=== PATIENT | female | born 2000 | race Caucasian/White ===

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

== ENCOUNTER 2020-01-18 17:51 | Emergency (ER) | payer SELFPAY ==
[~2020-01-18] VITALS: Ht 160 cm; Wt 85.9 kg
[2020-01-18 18:08] VITALS: TEMP 98.2
[2020-01-18] MEDS ORDERED: CELEXA 20MG20 MG/TAB PO (18:13)
[2020-01-18 19:35] VITALS: BP 112/74; PULSE 55
== END 2020-01-18 19:35 | disposition home or self-care (01) ==
LOC: COL.ER 17:51
PROVIDERS: Physician Assistant
DX: N92.6 Irregular menstruation, unspecified (principal); F32.9 Major depressive disorder, single episode, unspecified; F41.9 Anxiety disorder, unspecified; G35 Multiple sclerosis; Z90.49 Acquired absence of other specified parts of digestive tract; Z87.891 Personal history of nicotine dependence; Z88.0 Allergy status to penicillin

== ENCOUNTER 2020-03-12 21:05 | Emergency (ER) | payer SELFPAY ==
[~2020-03-12] VITALS: Ht 157.5 cm; Wt 84.5 kg
[~2020-03-12 21:05] MED LIST changes: +CELEXA 20MG20 MG/TAB PO
[2020-03-12 21:13] VITALS: BP 100/62; PULSE 64; TEMP 97.9
[2020-03-12 21:53] LABS: MUCOUS Present /lpf; PH 5 (5-8); SQUAMOUS EPITHELIAL 0-2 /hpf; URINE APPEARANCE Clear; URINE BACTERIA Rare /hpf; URINE BILIRUBIN Negative (NEGATIVE); URINE BLOOD 2+ (NEGATIVE); URINE COLOR Yellow; URINE GLUCOSE Negative (NEGATIVE); URINE KETONE Negative (NEGATIVE); URINE LEUKOCYTE ESTERASE Negative (NEGATIVE); URINE NITRATE Negative (NEGATIVE); URINE PROTEIN(semi-quant) Negative (NEGATIVE); URINE RBC 0-2 /hpf; URINE UROBILINOGEN Negative (NEGATIVE); URINE WBC 0-2 /hpf
[2020-03-12 22:42] LABS: COLLECTION METHOD CLEAN CATCH
[2020-03-12] MEDS ORDERED: PREDNISONE20 MG PO (23:54)
== END 2020-03-13 00:10 | disposition home or self-care (01) ==
LOC: COL.ER 21:05
PROVIDERS: Emergency Medicine
DX: G35 Multiple sclerosis (principal); R27.0 Ataxia, unspecified; F32.9 Major depressive disorder, single episode, unspecified; F41.9 Anxiety disorder, unspecified; F17.210 Nicotine dependence, cigarettes, uncomplicated; Z20.828 Contact with and (suspected) exposure to other viral communicable diseases; Z88.0 Allergy status to penicillin
CPT/HCPCS: J2930; J7060

== ENCOUNTER 2020-07-09 10:07 | Emergency (ER) | payer SELFPAY ==
[~2020-07-09] VITALS: Ht 157.5 cm; Wt 95.5 kg
[~2020-07-09 10:07] MED LIST changes: +CEPHALEXIN500 M1 PO; +PREDNISONE20 MG PO
[2020-07-09 10:29] VITALS: TEMP 98.2
[2020-07-09 10:37] LABS: COLLECTION METHOD CLEAN CATCH
[2020-07-09 10:43] LABS: MUCOUS Present /lpf; PH 7 (5-8); SQUAMOUS EPITHELIAL 0-2 /hpf; URINE APPEARANCE Clear; URINE BACTERIA None Seen /hpf; URINE BILIRUBIN Negative (NEGATIVE); URINE BLOOD Negative (NEGATIVE); URINE COLOR Yellow; URINE GLUCOSE Negative (NEGATIVE); URINE KETONE Negative (NEGATIVE); URINE LEUKOCYTE ESTERASE Negative (NEGATIVE); URINE NITRATE Negative (NEGATIVE); URINE PROTEIN(semi-quant) Negative (NEGATIVE); URINE RBC 0-2 /hpf
[2020-07-09] MEDS ORDERED: PREDNISONE10 MG PO (11:09)
[2020-07-09 11:49] VITALS: BP 135/81; PULSE 72
== END 2020-07-09 11:50 | disposition home or self-care (01) ==
LOC: COL.ER 10:07
PROVIDERS: Emergency Medicine
DX: G35 Multiple sclerosis (principal); F17.290 Nicotine dependence, other tobacco product, uncomplicated; Z88.0 Allergy status to penicillin
CPT/HCPCS: J2930

== ENCOUNTER 2020-07-18 17:00 | Outpatient (RCR) | payer SELFPAY ==
[2020-07-15 09:06] VITALS: BP 109/83; PULSE 62; TEMP 98.4
[~2020-07-18] VITALS: Ht 157.5 cm; Wt 96.0 kg
[~2020-07-18 17:00] MED LIST changes: +PREDNISONE10 MG PO
--- NOTE | 2020-07-19 14:43 | NUR ---
I spoke with pt at 1130 today inquiring about her well-being as she has not come for her infusion of solumedrol for past 3 days. Pt reports remains ambulatory, but cannot drive due to increasing numbness. Pt reports has spoken with Dr. Lawrence's office and has been referred to another neurologist. Pt reports also that she needs to establish primary care locally. Pt denied wanting the numbers of our in-house case supervisor to aid in her efforts. I spoke with pt again at 1440 and she reports she had been in touch with new neurologist, and that they were working on a plan. Pt reports she will not be coming [facility] from current order. Plan to close this account.
== END 2020-07-19 14:49 | disposition home or self-care (01) ==
LOC: EUO 17:00
DX: Z79.899 Other long term (current) drug therapy (principal)
CPT/HCPCS: J2930; J7050

== ENCOUNTER 2020-08-03 08:50 | Emergency (ER) | payer SELFPAY ==
[~2020-08-03] VITALS: Ht 160 cm; Wt 99.1 kg
[2020-08-03 08:57] VITALS: TEMP 98.1
[2020-08-03] MEDS ORDERED: NEXPLANON68 MG ID (09:10)
[2020-08-03] MEDS ORDERED: PROTONIX 40MG T40 MG PO (09:15)
[2020-08-03] MEDS ORDERED: PREDNISONE20 MG PO (09:16)
[2020-08-03 09:33] LABS: HEMATOCRIT 37.4 % (37.0-47.0); MEAN CELL VOLUME 90 fl (80.0-100.0); MEAN CORPUSCULAR HEMOGLOBIN 29 pg (27.0-31.0); MEAN CORPUSCULAR HGB CONC 32 g/dl (33.0-37.0); MEAN PLATELET VOLUME 9.4 fl (7.4-10.4); PLATELET COUNT 307 K/mm3 (130-400); RED BLOOD COUNT 4.14 M/mm3 (4.10-5.30); REDCELL DISTRIBUTION WIDTH-CV 13.8 % (11.5-14.5)
[2020-08-03 09:43] LABS: COLLECTION METHOD CLEAN CATCH
[2020-08-03 09:45] LABS: ALANINE AMINOTRANSFERASE 27 U/L (4-34); ALKALINE PHOSPHATASE 37 U/L (50-136); ANION GAP 3 mmol/L (7-16); AST,SGOT 14 U/L (15-37); BILIRUBIN,TOTAL 0.3 mg/dL (0.0-1.0); BLOOD UREA NITROGEN 24 mg/dL (7-17); CALCIUM 8.1 mg/dL (8.4-10.2); CARBON DIOXIDE 30 mmol/L (22-30); CHLORIDE 104 mmol/L (98-107); CREATININE, serum 0.58 (0.52-1.25); GLUCOSE 82 mg/dL (74-106); POTASSIUM 3.6 mmol/L (3.4-5.0); SODIUM 138 mmol/L (137-145); TOTAL PROTEIN 5.6 gm/dL (6.4-8.2)
[2020-08-03 09:49] LABS: C-REACTIVE PROTEIN < 0.5 mg/dL (0.0-0.9)
[2020-08-03 09:52] LABS: MUCOUS Present /lpf; PH 6 (5-8); URINE APPEARANCE Hazy; URINE BACTERIA None Seen /hpf; URINE BILIRUBIN Negative (NEGATIVE); URINE BLOOD Negative (NEGATIVE); URINE COLOR Yellow; URINE GLUCOSE Negative (NEGATIVE); URINE KETONE Negative (NEGATIVE); URINE LEUKOCYTE ESTERASE 1+ (NEGATIVE); URINE NITRATE Negative (NEGATIVE); URINE PROTEIN(semi-quant) Negative (NEGATIVE); URINE RBC 0-2 /hpf
[2020-08-03 10:19] LABS: BAND 1 % (0-10); LYMPHOCYTE 16 % (20.0-51.0); METAMYELOCYTE 1 % (0-0); NEUTROPHILS 78 % (42.0-75.2); PLATELET ESTIMATE NORMAL (NORMAL)
[2020-08-03 10:55] VITALS: BP 134/82; PULSE 51
== END 2020-08-03 10:55 | disposition home or self-care (01) ==
LOC: COL.ER 08:50
PROVIDERS: Family Medicine
DX: G35 Multiple sclerosis (principal); Z79.52 Long term (current) use of systemic steroids; F17.210 Nicotine dependence, cigarettes, uncomplicated; Z90.49 Acquired absence of other specified parts of digestive tract; Z88.0 Allergy status to penicillin; Z88.8 Allergy status to other drugs, medicaments and biological substances

== ENCOUNTER 2020-08-12 18:57 | Emergency (ER) | payer BC ==
[~2020-08-12] VITALS: Ht 157.5 cm; Wt 99.1 kg
[~2020-08-12 18:57] MED LIST changes: +NEXPLANON68 MG ID; +PROTONIX 40MG T40 MG PO
[2020-08-12 20:03] LABS: COLLECTION METHOD CLEAN CATCH
[2020-08-12 20:07] LABS: BASO # 0.1 (0.0-0.2); BASO % 0.3 % (0.0-2.0); GRAN # 21.2 (1.4-6.5); GRAN % 86.3 % (42.2-75.2); HEMOGLOBIN 14.8 g/dl (12.5-16.0); LYMPH # 1.7 (1.2-3.4); LYMPH % 6.8 % (20.0-51.0); MEAN CELL VOLUME 89 fl (80.0-100.0); MEAN CORPUSCULAR HEMOGLOBIN 29 pg (27.0-31.0); MEAN CORPUSCULAR HGB CONC 33 g/dl (33.0-37.0); MEAN PLATELET VOLUME 8.7 fl (7.4-10.4); MONO # 1.3 (0.1-0.6); MONO % 5.1 % (1.7-9.3); PLATELET COUNT 325 K/mm3 (130-400); RED BLOOD COUNT 5.06 M/mm3 (4.10-5.30); REDCELL DISTRIBUTION WIDTH-CV 14.4 % (11.5-14.5)
[2020-08-12 20:13] LABS: ALBUMIN 4.1 gm/dL (3.5-5.0); BILIRUBIN,TOTAL 1.2 mg/dL (0.0-1.0); CALCIUM 9.1 mg/dL (8.4-10.2); CREATININE, serum 0.58 (0.52-1.25); POTASSIUM 3.8 mmol/L (3.4-5.0); TOTAL PROTEIN 7.3 gm/dL (6.4-8.2)
[2020-08-12 20:14] LABS: PH 5 (5-8); URINE APPEARANCE Hazy; URINE BACTERIA None Seen /hpf; URINE BILIRUBIN Negative (NEGATIVE); URINE BLOOD 3+ (NEGATIVE); URINE COLOR Yellow; URINE GLUCOSE Negative (NEGATIVE); URINE KETONE Negative (NEGATIVE); URINE LEUKOCYTE ESTERASE 1+ (NEGATIVE); URINE NITRATE Negative (NEGATIVE); URINE PROTEIN(semi-quant) Negative (NEGATIVE); URINE RBC 20-50 /hpf
[2020-08-12 21:22] LABS: BAND 9 % (0-10); LYMPHOCYTE 11 % (20.0-51.0); MYELOCYTE 1 % (0-0); NEUTROPHILS 71 % (42.0-75.2); PLATELET ESTIMATE NORMAL (NORMAL)
[2020-08-12] MEDS ORDERED: TYLENOL 325MG325 MG PO (21:36)
[2020-08-12] MEDS ORDERED: ZOFRAN ODT4 MG PO (21:36)
[2020-08-12 22:40] VITALS: BP 136/86; PULSE 110; TEMP 98.1
== END 2020-08-12 22:39 | disposition home or self-care (01) ==
LOC: COL.ER 18:57
PROVIDERS: Emergency Medicine
DX: K52.9 Noninfective gastroenteritis and colitis, unspecified (principal); Z79.52 Long term (current) use of systemic steroids; D72.829 Elevated white blood cell count, unspecified; Z32.02 Encounter for pregnancy test, result negative; Z88.0 Allergy status to penicillin; Z88.8 Allergy status to other drugs, medicaments and biological substances
CPT/HCPCS: J2060; J2270; J2405; J3010; J7030; Q9967

== ENCOUNTER → 2020-09-12 | Outpatient (CLI) | payer BC ==
[~2020-09-12] MED LIST changes: +TYLENOL 325MG325 MG PO; +ZOFRAN ODT4 MG PO
== END ==
LOC: COL.RAD 10:25
DX: G37.9 Demyelinating disease of central nervous system, unspecified (principal)
CPT/HCPCS: A9585

== ENCOUNTER → 2020-09-25 | Outpatient (CLI) | payer BC ==
[2020-09-25 17:11] LABS: ALBUMIN 3.8 gm/dL (3.5-5.0); BILIRUBIN,TOTAL 1.2 mg/dL (0.0-1.0); CALCIUM 8.9 mg/dL (8.4-10.2); CREATININE, serum 0.57 (0.52-1.25); POTASSIUM 3.6 mmol/L (3.4-5.0); TOTAL PROTEIN 6.9 gm/dL (6.4-8.2)
[2020-09-25 17:54] LABS: HIV 1/2 Antibodies Non-Reactive; HIV-1p24 Antigen Non-Reactive
[2020-09-25 23:14] LABS: IMMUNOGLOBULIN A 66 mg/dL (65-421); IMMUNOGLOBULIN G 948 mg/dL (552-1631); IMMUNOGLOBULIN M, QUANTITATIVE 140 mg/dL (33-293)
[2020-09-25 23:29] LABS: HEPATITIS B CORE AB,TOTAL Negative (()); HEPATITIS B SURFACE ANTIBODY <2.0 (()); HEPATITIS B SURFACE ANTIGEN Negative (Negative); HEPATITIS C VIRUS ANTIBODY Negative (Negative)
[2020-09-26 16:16] LABS: TB GOLD INTERPRETATION Negative (Negative)
== END ==
LOC: COL.LAB 16:22
DX: Z76.89 Persons encountering health services in other specified circumstances (principal); G35 Multiple sclerosis

== ENCOUNTER 2020-11-08 22:38 | Emergency (ER) | payer BC ==
[~2020-11-08] VITALS: Ht 157.5 cm; Wt 102.3 kg
[2020-11-08 22:53] VITALS: TEMP 99.5
[2020-11-09 01:22] VITALS: BP 100/67; PULSE 71
== END 2020-11-09 00:15 | disposition home or self-care (01) ==
LOC: COL.ER 22:38
DX: J06.9 Acute upper respiratory infection, unspecified (principal); G35 Multiple sclerosis; Z20.822 Contact with and (suspected) exposure to COVID-19

== ENCOUNTER 2021-02-25 10:31 | Emergency (ER) | payer BC, MEDICAID ==
[~2021-02-25] VITALS: Ht 157.5 cm; Wt 105.9 kg
[2021-02-25 10:50] VITALS: TEMP 98
[2021-02-25 11:29] LABS: COLLECTION METHOD CLEAN CATCH
[2021-02-25 11:38] LABS: MUCOUS Present /lpf; PH 5 (5-8); URINE APPEARANCE Hazy; URINE BACTERIA Rare /hpf; URINE BILIRUBIN Negative (NEGATIVE); URINE BLOOD Negative (NEGATIVE); URINE COLOR Amber; URINE GLUCOSE Negative (NEGATIVE); URINE KETONE Negative (NEGATIVE); URINE LEUKOCYTE ESTERASE Trace (NEGATIVE); URINE NITRATE Negative (NEGATIVE); URINE PROTEIN(semi-quant) Negative (NEGATIVE); URINE RBC 0-2 /hpf; URINE UROBILINOGEN >=4.0 mg/dL (NEGATIVE)
[2021-02-25 13:42] VITALS: BP 125/70; PULSE 80
== END 2021-02-25 13:44 | disposition home or self-care (01) ==
LOC: COL.ER 10:31
PROVIDERS: Nurse Practitioner Primary Care
DX: O9A.211 Injury, poisoning and certain other consequences of external causes complicating pregnancy, first trimester (principal); S30.0XXA Contusion of lower back and pelvis, initial encounter; O99.511 Diseases of the respiratory system complicating pregnancy, first trimester; J06.9 Acute upper respiratory infection, unspecified; Z3A.11 11 weeks gestation of pregnancy; W01.198A Fall on same level from slipping, tripping and stumbling with subsequent striking against other object, initial encounter; Y92.524 Gas station as the place of occurrence of the external cause

== ENCOUNTER 2021-06-18 19:03 | Outpatient (CLI) | payer BC, MEDICAID ==
[~2021-06-18] VITALS: Ht 157.5 cm; Wt 106.8 kg
--- NOTE | 2021-06-18 19:12 | NUR ---
1913- 20 yo, , 27.4 wga: Presents to OB unit, ambulatory, accompanied by spouse, Lam. RN escorted to room. Instructions given and oriented to room. Pt c/o discharge/ LOF and cramping. Per pt report the cramping started this morning and she has noticed the discharge x 2 days. +FM, -CTX, -VB. 1917- EFM and Scissors applied. RN at bs adjusting EFM. Difficulty tracing FHTs r/t body habitus. 1924- SVE:0/0/-3 performed by MIKE Ying. Amniotrace negative. VSS. Afebrile. Rates pain 06/20. [id number]- RN remains at bs adjusting EFM. Difficulty tracing FHTs. Position change to left lateral. 2014- Educated pt on staying hydrated. H2O jug of water provided to pt and instructed to drink. 2020- Dr. Selby notified of pt's arrival and status. Per Dr. Selby have pt call office for f/u appt and orders rec'd to DC pt home w/ instructions. 2022- EFM and toco removed. DC instructions d/w pt and spouse. All questions answered. Pt verbalizes understanding and signs paperwork. 2039- Pt ambulates off unit, accompanied by spouse. DC home.
[2021-06-18 19:25] VITALS: BP 108/51; PULSE 70; TEMP 97.6
[2021-06-18] MEDS ORDERED: PRENATAL (19:47)
[2021-06-18] MEDS ORDERED: CELEXA40 MG PO (19:47)
[2021-06-18 19:49] VITALS: TEMP 97.6
== END 2021-06-18 20:40 | disposition home or self-care (01) ==
LOC: LDRO 19:03 → LDR 19:15 → LDRO 20:40
DX: O62.9 Abnormality of forces of labor, unspecified (principal); Z3A.00 Weeks of gestation of pregnancy not specified
CPT/HCPCS: OP

== ENCOUNTER 2021-07-05 08:42 | Outpatient (CLI) | payer BC, MEDICAID ==
[~2021-07-05] VITALS: Ht 157.5 cm; Wt 104.5 kg
[~2021-07-05 08:42] MED LIST changes: +CELEXA40 MG PO; +PRENATAL
[2021-07-05 08:47] VITALS: BP 99/55; PULSE 81; TEMP 98.6
[2021-07-05 09:20] VITALS: PULSE 78
--- NOTE | 2021-07-05 09:45 | NUR ---
0859 PATIENT HERE FOR COMPLAINTS OF BLEEDING WHEN WENT TO BATHROOM. EFM ON FHT 130 BABY VERY ACTIVE. SVE 0/ THICK/ HIGH BY C CASE RN. ASSESSMENT COMPLETED. DR TEAGUE UPDATED AND ORDERS TO DISMISS TO HOME AFTER A 20 MIN STRIP
--- NOTE | 2021-07-05 09:55 | NUR ---
0920 ALL DISCHARGE INSTRUCTIONS GIVEN TO PATIENT, WITH VERBAL UNDERSTANDING NOTED. DENIES NEEDS.
== END 2021-07-05 09:20 | disposition home or self-care (01) ==
LOC: LDRO 08:42
DX: O46.93 Antepartum hemorrhage, unspecified, third trimester (principal); Z3A.31 31 weeks gestation of pregnancy

== ENCOUNTER → 2021-08-14 | Outpatient (CLI) | payer BC, MEDICAID ==
[~2021-08-14] MED LIST changes: +ASPIRIN E.C. 8181 MG PO; +TUMS ULTRA ST1000 MG PO
[2021-08-14 17:33] LABS: BASO % 0.3 % (0.0-2.0); EOS % 0.2 % (0.0-4.0); GRAN # 7.6 K/mm3 (1.4-6.5); GRAN % 80.7 % (42.2-75.2); LYMPH # 1.2 K/mm3 (1.2-3.4); LYMPH % 12.2 % (20.0-51.0); MEAN CELL VOLUME 84 fl (80.0-100.0); MEAN CORPUSCULAR HGB CONC 31 g/dl (33.0-37.0); MEAN PLATELET VOLUME 9.7 fl (7.4-10.4); MONO # 0.6 K/mm3 (0.1-0.6); MONO % 6.2 % (1.7-9.3); PLATELET COUNT 350 K/mm3 (130-400); REDCELL DISTRIBUTION WIDTH-CV 13.1 % (11.5-14.5)
[2021-08-14 17:34] LABS: HEMATOCRIT 31.9 % (37.0-47.0); HEMOGLOBIN 9.9 g/dl (12.5-16.0); MEAN CORPUSCULAR HEMOGLOBIN 26 pg (27-31)
[2021-08-14 17:47] LABS: ALBUMIN 2.4 gm/dL (3.5-5.0); BILIRUBIN,TOTAL 0.7 mg/dL (0.2-1.2); CALCIUM 8.4 mg/dL (8.4-10.2); CREATININE, serum 0.62 mg/dL (0.57-1.11); POTASSIUM 3.6 mmol/L (3.5-4.5); TOTAL PROTEIN 6.3 gm/dL (6.2-8.1)
[2021-08-14 22:41] LABS: IMMUNOGLOBULIN A 58 mg/dL (65-421); IMMUNOGLOBULIN G 826 mg/dL (552-1631); IMMUNOGLOBULIN M, QUANTITATIVE 65 mg/dL (33-293)
== END ==
LOC: COL.LAB 16:45
PROVIDERS: Psychiatry & Neurology Neurology
DX: G35 Multiple sclerosis (principal); Z79.899 Other long term (current) drug therapy

== ENCOUNTER → 2021-08-17 | Outpatient (CLI) | payer BC, MEDICAID | LOC: ZCOL.LAB 14:00 | DX: G35 Multiple sclerosis (principal); Z79.899 Other long term (current) drug therapy ==

== ENCOUNTER 2021-08-20 15:54 | Outpatient (CLI) | payer BC, MEDICAID ==
[~2021-08-20] VITALS: Ht 157.5 cm; Wt 106.8 kg
[~2021-08-20 15:54] MED LIST changes: -ASPIRIN E.C. 8181 MG PO; -TUMS ULTRA ST1000 MG PO
--- NOTE | 2021-08-20 16:00 | NUR ---
1600- Pt arrives on unit ambulatory with spouse. 1606- Pt into bed, EFM and TOCO on and tracing. Complains of intermittent, lower abd pain but states "it doesn't feel like contractions." Pt states it started approx. 20-30 mins before arriving, occuring every 5-10 mins, and lasting for approx. 30 seconds. Pt denies VB/LOOF. +FM per Pt. VSS. Assessments completed.
[2021-08-20] MEDS ORDERED: CEPHALEXIN500 M1 PO (16:20)
[2021-08-20] MEDS ORDERED: ASPIRIN E.C. 8181 MG PO (16:20)
[2021-08-20] MEDS ORDERED: TUMS ULTRA ST1000 MG PO (16:21)
[2021-08-20 16:30] VITALS: BP 102/49; PULSE 99; TEMP 98.4
[2021-08-20 16:50] VITALS: BP 97/49; PULSE 79
--- NOTE | 2021-08-20 16:50 | NUR ---
1650- Discharge plan explained. Discussed labor precautions. Questions answered. EFM and TOCO off. Pt up to change into street clothes. 1700- Discharge paperwork given and explained. Pt ambulates off unit with spouse in stable condition.
== END 2021-08-20 17:00 | disposition home or self-care (01) ==
LOC: LDRO 15:54
DX: O26.893 Other specified pregnancy related conditions, third trimester (principal); R10.30 Lower abdominal pain, unspecified; Z3A.36 36 weeks gestation of pregnancy

== ENCOUNTER 2021-09-01 00:19 | Outpatient (CLI) | payer BC, MEDICAID ==
[~2021-09-01] VITALS: Ht 160 cm; Wt 106.8 kg
[~2021-09-01 00:19] MED LIST changes: +ASPIRIN E.C. 8181 MG PO; +TUMS ULTRA ST1000 MG PO
--- NOTE | 2021-09-01 00:30 | NUR ---
0030 G4L2 38.2 WEEK GEST TO LR3 WITH C/O CONTRACTIONS ALL DAY MAYBE BECOMING STRONGER BEFORE BEDTIME AND POSS SROM. STATES GOT UP TO BR TO VOID AND WAS UNABLE TO VOID BUT THOUGHT THERE WAS SOME KIND OF FLUID IN THE TOILET THAT WASN'T URINE. EFM ON. SVE /-3. NEG AMNIOTRACE AND NO AMNIOTIC FLUID NOTED. FHT BASELINE 130'S WITH ACCELS NOTED TO 170'S WITH MOVEMENT. ADM ASSESSMENT COMPLETED. PT STATES HAS MULTIPLE SCLEROSIS BUT NOT ON ANY MEDICATION FOR IT WHILE . INITIAL B/P 84/41 AND RECHECKED 10 MINUTES LATER 115/55
[2021-09-01 00:40] VITALS: BP 115/55; PULSE 68; TEMP 98.5
[2021-09-01 01:15] VITALS: BP 107/51; PULSE 62
--- NOTE | 2021-09-01 01:15 | NUR ---
0115 CTX NOTED EVERY 3-5 MINUTES. PT TALKS THRU THEM AND DOES NOT COMPLAIN ABOUT THEM. FHT BASELINE 140 WITH ACCELS TO 170-180 WITH MOVENT THAT LAST FOR SEVERAL MINUTES.
--- NOTE | 2021-09-01 02:05 | NUR ---
0205 BABY REMAINS VERY ACTIVE. FHT BASE 140'S WITH ACCELS TO 160'S-170'S WITH MOVEMENT. SVE WITH NO CERVICAL CHANGE. 0210 DR PAGAN NOTIFIED AND ORDER TO DISMISS GIVEN 0225 HOME WITH INSTRUCTION.
== END 2021-09-01 02:25 | disposition home or self-care (01) ==
LOC: LDR 00:19 → LDRO 00:19
DX: O47.1 False labor at or after 37 completed weeks of gestation (principal); Z3A.38 38 weeks gestation of pregnancy
CPT/HCPCS: OP

== ENCOUNTER 2021-09-10 01:44 | Inpatient (IN) | payer BC, MEDICAID ==
[2021-09-10] VITALS (22 sets, daily range): BP systolic 109–132; BP diastolic 47–81; PULSE 60–95; TEMP 97.9–98.8
[~2021-09-10] VITALS: Ht 157.5 cm; Wt 108.2 kg
--- NOTE | 2021-09-10 01:45 | NUR ---
G4L2 at 39 weeks and 4 days arrives to unit by wheelchair with complaint of contractions every 3 minutes and spontaneous rupture of membranes around 0115. Pt reports contractions started getting stronger around 2300 and felt multiple large gushes of fluid on her way to hospital. Clean gown on. Oriented to room, bed in low and locked position, call light within reach. US and toco explained and applied. Pt appears to be very uncomfortable. Vitals obtained. Admission assessment started. SVE complete/-2, bulging bag of water. Charge nurse and nursery nurse updated. Dr. Piedra notified, see physician notification 0200 - 18G IV started in left forearm with 1 attempt. Admission labs obtained off IV start.
--- NOTE | 2021-09-10 02:11 | NUR ---
at bedside. 0215: AROM completed with large amount of clear fluid noted. Pt begins to push with provider. 0220: scalp placed. Educated pt on laboring down due to station. Pt verbalized her understanding and continues breathing through contractions. Pt repositioned to right lateral position with left leg in stirrups. remains on unit. 0230: Pt repositioned to left lateral position with right leg in stirrups. 0243: Pt repositioned to [facility]. 0315: Pt requesting epidural. Ho CERVANTES notified. Pt very tearful and hurting. Emotional support given. 0334: Ho CERVANTES at bedside for epidural placement. Pt assisted to edge of bed for placement. Pulse ox on. 0345: Single shot administered by Ho CERVANTES. See anesthesia records. 0350: Pt assisted to simifowlers. Plan of care and safety precautions explained to pt. 0408: Pt begins pushing with this RN. 0438: at bedside to assess pt. Orders to labor down now that pt is comfortable with epidural received. Pt repositioned to right lateral position. Provider remains on unit. Epidural pump started by Ho CERVANTES. [id number]: Difficulty tracing contractions due to maternal position. 0453: Pt repositioned to left lateral position with right leg in stirrups. 0515: Straight cath completed. Pt repositioned to [facility]. 0553: Pt begins pushing with this RN. 0603: at bedside to assess pushing. Pt pushes with provider. 0609: Pitocin started at 2mus/hr per providers orders. 0610: Reports given to MIKE Trevino.
[2021-09-10 02:35] LABS: BASO % 0.2 % (0.0-2.0); EOS % 0.3 % (0.0-4.0); GRAN # 8.1 K/mm3 (1.4-6.5); GRAN % 75.6 % (42.2-75.2); HEMOGLOBIN 10.3 g/dl (12.5-16.0); LYMPH # 1.8 K/mm3 (1.2-3.4); LYMPH % 16.6 % (20.0-51.0); MEAN CELL VOLUME 80 fl (80.0-100.0); MEAN CORPUSCULAR HEMOGLOBIN 26 pg (27-31); MEAN CORPUSCULAR HGB CONC 32 g/dl (33.0-37.0); MEAN PLATELET VOLUME 10.5 fl (7.4-10.4); MONO # 0.8 K/mm3 (0.1-0.6); PLATELET COUNT 362 K/mm3 (130-400); RED BLOOD COUNT 4.02 M/mm3 (4.10-5.30); REDCELL DISTRIBUTION WIDTH-CV 13.9 % (11.5-14.5)
[2021-09-10 02:40] LABS: HEMATOCRIT 32.2 % (37.0-47.0)
[2021-09-10 05:40] LABS: TRICYCLIC ANTIDEPRESS URINE NEGATIVE
--- NOTE | 2021-09-10 06:15 | NUR ---
This process description writer resumes care at this time. Note patient pushing upon entrance to room. in room evaluating pushing efforts.
--- NOTE | 2021-09-10 06:20 | NUR ---
Closed knee pushing efforts through 3 contractions.
--- NOTE | 2021-09-10 06:30 | NUR ---
Note FSE in place, baseline indeterminate.
--- NOTE | 2021-09-10 06:35 | NUR ---
Hips lowered (foot of bed dropped beneath patient hips) with pushing efforts.
--- NOTE | 2021-09-10 06:40 | NUR ---
Pit off per verbal order.
--- NOTE | 2021-09-10 06:43 | NUR ---
Rapid delivery of head, rapidly followed by shoulders at this time. Note this law writer and in room. Nursery nurse called to come for assessment.
--- NOTE | 2021-09-10 06:49 | NUR ---
Spontaneous vaginal delivery of placenta by . Note intact perineum per assessment. Red cali catheter by , estimated 50 mL urine return. Pit bolus begun immediately following delivery of placenta at 333mU/min.
--- NOTE | 2021-09-10 06:50 | NUR ---
Ying care provided, ice pack applied to perineum. Warm blanket provided. Repositioned for comfort.
[2021-09-10] MEDS ORDERED: MOTRIN 800800 MG/TAB PO (12:06)
--- NOTE | 2021-09-10 13:30 | NUR ---
REPORT TAKEN AND CARE ASSUMED.
[2021-09-11 00:15] VITALS: BP 110/63; PULSE 58; TEMP 97.4
[2021-09-11 06:47] VITALS: BP 107/50; PULSE 59; TEMP 97.9
--- NOTE | 2021-09-11 09:19 | NUR ---
Initial visit; Patient thanked Associate Professor Of Engineering for offering congratulations and God's blessings for their daughter. Associate Professor Of Engineering thanked family for choosing [facility].
--- NOTE | 2021-09-11 09:30 | NUR ---
TIEN received a consult on the patient for history of marijuana use and screening for illegal drugs. The patient and baby's UDS was negative. The baby's cord blood is pending. The patient did have a postive UDS for marijuana early in . TIEN met with the patient and her (father of baby), Lam. Lam was sleeping. The patient lives in [place] with her , their [id number] son, and the patient's mother. She states that she also has a [id number] son, but he lives with his father is [place]. She states that they share 50/50 custody, but that her and his father do not have a good relationship and she has not seen her son since 2019. She states that she works at the [employer] and her is unemployed right now, due to having an elbow injury and not being able to lift much. She states that places have not hired him because of this, so he stays at home and takes care of their son, while she works. She states that her job does not offer paid maternity leave, so she plans on going back to work as soon as she is able to. The patient states that she has a crib and carseat for baby and has an appointment with [facility] today to add baby. TIEN addressed the patient's history of marijuana use and testing postive for marijuana back in February. The patient states that she was smoking the Delta 8 cigarettes before finding out she was . She stopped smoking these once she found out she was and the THC must have still been in her system, when her UDS came back positive. She states that she has not used marijuana since and has not concerns about using marijuana again. She states that her continues to smoke the Delta 8 cigarettes to manage his elbow pain, but that he smokes these outside of their home and a friend's house. She also has a history of mixed anxiety and depression. The patient states that her PCP back in [place] was managing the medication, but since moving to [place], her neurologist has been prescribing and managing the medication. The patient had no concerns about bring baby home upon discharge. She did inquire about resources to assist with helping them pay their morgage. TIEN informed her of [facility] and provided the patient with their contact information and [facility]'s Resource Guide. The patient had no other questions or concerns for SW.
--- NOTE | 2021-09-11 11:15 | NUR ---
1115 - PATIENT GIVEN DISCHARGE INSTRUCTIONS. SPOUSE PRESENT FOR EDUCATION. 1130 - PATIENT AMBULATORY OFF UNIT ACCOMPANIED BY SPOUSE AND RN.
--- NOTE | 2021-09-13 07:19 | NUR ---
Patient's infant's cord blood was negative for illegal drugs in system.
== END 2021-09-11 11:30 | disposition home or self-care (01) | DRG 806 ==
LOC: LDRO 01:44 → OB 02:20 → LDR 02:20 → OB 09:03
PROVIDERS: ADMIT Student in an Organized Health Care Education/Training Program
PROC: 10E0XZZ Delivery of Products of Conception, External Approach (ICD-10-PCS; principal; 2021-09-10)
DX: O99.344 Other mental disorders complicating childbirth (principal); O99.354 Diseases of the nervous system complicating childbirth; Z37.0 Single live birth; G35 Multiple sclerosis; O99.214 Obesity complicating childbirth; O99.820 Streptococcus B carrier state complicating pregnancy; O64.0XX0 Obstructed labor due to incomplete rotation of fetal head, not applicable or unspecified; F32.A Depression, unspecified; F41.3 Other mixed anxiety disorders; F43.10 Post-traumatic stress disorder, unspecified; O69.2XX0 Labor and delivery complicated by other cord entanglement, with compression, not applicable or unspecified; Z3A.39 39 weeks gestation of pregnancy
CPT/HCPCS: J1200; J2590; J3010; J3370; J7050; J7120

== ENCOUNTER 2021-09-17 17:34 | Emergency (ER) | payer BC, MEDICAID ==
[~2021-09-17 17:34] MED LIST changes: +MOTRIN 800800 MG/TAB PO
== END 2021-09-17 18:04 | disposition left against medical advice (07) ==
LOC: COL.ER 17:34
DX: R69 Illness, unspecified (principal)

== ENCOUNTER 2021-09-19 19:56 | Emergency (ER) | payer BC, MEDICAID ==
[~2021-09-19] VITALS: Ht 157.5 cm; Wt 102.3 kg
[2021-09-19 20:57] LABS: BASO % 0.2 % (0.0-2.0); EOS % 0.1 % (0.0-4.0); GRAN # 7.5 K/mm3 (1.4-6.5); GRAN % 86.5 % (42.2-75.2); LYMPH # 0.6 K/mm3 (1.2-3.4); LYMPH % 6.9 % (20.0-51.0); MEAN CELL VOLUME 80 fl (80.0-100.0); MEAN CORPUSCULAR HGB CONC 31 g/dl (33.0-37.0); MEAN PLATELET VOLUME 9.5 fl (7.4-10.4); MONO # 0.5 K/mm3 (0.1-0.6); PLATELET COUNT 439 K/mm3 (130-400); RED BLOOD COUNT 3.94 M/mm3 (4.10-5.30); REDCELL DISTRIBUTION WIDTH-CV 14.4 % (11.5-14.5)
[2021-09-19 20:58] LABS: HEMATOCRIT 31.5 % (37.0-47.0); HEMOGLOBIN 9.8 g/dl (12.5-16.0); MEAN CORPUSCULAR HEMOGLOBIN 25 pg (27-31)
[2021-09-19 21:15] LABS: COLLECTION METHOD CLEAN CATCH
[2021-09-19 21:15] LABS: ALBUMIN 2.7 gm/dL (3.5-5.0); BILIRUBIN,TOTAL 0.6 mg/dL (0.2-1.2); CALCIUM 8.9 mg/dL (8.4-10.2); CREATININE, serum 0.78 mg/dL (0.57-1.11); POTASSIUM 3.5 mmol/L (3.5-4.5); TOTAL PROTEIN 6.8 gm/dL (6.2-8.1)
[2021-09-19 21:19] LABS: ERYTHROCYTE SEDIMENTATION RATE 78 mm/hr (0-20)
[2021-09-19 21:48] LABS: MUCOUS Present (NOT PRESENT); PH 6 (5-8); URINE APPEARANCE Cloudy (CLEAR/HAZY); URINE BACTERIA Rare /hpf (NONE SEEN); URINE BILIRUBIN Negative (NEGATIVE); URINE BLOOD 3+ (NEGATIVE); URINE COLOR Yellow (YELLOW); URINE GLUCOSE Negative (NEGATIVE); URINE KETONE Negative (NEGATIVE); URINE LEUKOCYTE ESTERASE 3+ (NEGATIVE); URINE NITRATE Negative (NEGATIVE); URINE PROTEIN(semi-quant) 1+ (NEGATIVE); URINE RBC >50 /hpf (0-2); URINE UROBILINOGEN >=4.0 (NEGATIVE)
[2021-09-19] MEDS ORDERED: CEPHALEXIN500 M1 PO (22:37)
[2021-09-19] MEDS ORDERED: NORCO 325 MG-51 TAB PO (22:37)
[2021-09-19 22:53] VITALS: BP 130/63; PULSE 86; TEMP 100.9
== END 2021-09-19 22:53 | disposition home or self-care (01) ==
LOC: COL.ER 19:56
PROVIDERS: Personal Emergency Response Attendant
DX: N39.0 Urinary tract infection, site not specified (principal); Z88.0 Allergy status to penicillin; Z28.310 Unvaccinated for COVID-19
CPT/HCPCS: J0696

== ENCOUNTER 2021-11-17 20:26 | Emergency (ER) | payer MEDICAID ==
[~2021-11-17] VITALS: Ht 157.5 cm; Wt 91.5 kg
[~2021-11-17 20:26] MED LIST changes: +NORCO 325 MG-51 TAB PO
[2021-11-17 20:36] VITALS: TEMP 98.4
[2021-11-17 22:17] VITALS: BP 114/78; PULSE 63
== END 2021-11-17 22:18 | disposition home or self-care (01) ==
LOC: COL.ER 20:26
DX: K04.7 Periapical abscess without sinus (principal); Z88.0 Allergy status to penicillin; Z28.310 Unvaccinated for COVID-19
CPT/HCPCS: J1885

== ENCOUNTER → 2021-12-04 | Outpatient (CLI) | payer MEDICAID | LOC: COL.RAD 14:00 | DX: G35 Multiple sclerosis (principal) ==

== ENCOUNTER 2022-08-19 12:52 | Emergency (ER) | payer BC, MEDICAID ==
[~2022-08-19] VITALS: Ht 158.8 cm; Wt 88.2 kg
[2022-08-19 13:03] VITALS: TEMP 98.1
[2022-08-19 13:46] LABS: BASO % 0.5 % (0.0-2.0); EOS % 0.3 % (0.0-4.0); GRAN # 4.4 K/mm3 (1.4-6.5); GRAN % 69.3 % (42.2-75.2); HEMATOCRIT 38.1 % (37.0-47.0); HEMOGLOBIN 12.6 g/dl (12.5-16.0); LYMPH # 1.5 K/mm3 (1.2-3.4); LYMPH % 23.3 % (20.0-51.0); MEAN CELL VOLUME 86 fl (80.0-100.0); MEAN CORPUSCULAR HEMOGLOBIN 28 pg (27-31); MEAN CORPUSCULAR HGB CONC 33 g/dl (33.0-37.0); MEAN PLATELET VOLUME 9.9 fl (7.4-10.4); MONO # 0.4 K/mm3 (0.1-0.6); MONO % 6.3 % (1.7-9.3); PLATELET COUNT 286 K/mm3 (130-400); RED BLOOD COUNT 4.44 M/mm3 (4.10-5.30)
[2022-08-19 14:04] LABS: ALBUMIN 3.9 gm/dL (3.5-5.0); C-REACTIVE PROTEIN 0.21 mg/dL (0.00-0.50); CALCIUM 9.5 mg/dL (8.4-10.2); CREATININE, serum 0.74 mg/dL (0.57-1.11); TOTAL PROTEIN 7.1 gm/dL (6.2-8.1)
[2022-08-19 14:13] LABS: ERYTHROCYTE SEDIMENTATION RATE 7 mm/hr (0-20)
[2022-08-19] MEDS ORDERED: PREDNISONE20 MG PO (14:33)
[2022-08-19 14:43] VITALS: BP 140/87; PULSE 77
== END 2022-08-19 15:51 | disposition home or self-care (01) ==
LOC: COL.ER 12:52
PROVIDERS: Emergency Medicine
DX: G35 Multiple sclerosis (principal); Z28.310 Unvaccinated for COVID-19
CPT/HCPCS: J2930; J7030

== ENCOUNTER → 2023-07-22 | Outpatient (CLI) | payer MEDICAID ==
[2023-07-22 17:10] LABS: BASO # 0.1 K/mm3 (0.0-0.2); BASO % 0.6 % (0.0-2.0); EOS # 0.1 K/mm3 (0.0-0.7); EOS % 0.9 % (0.0-4.0); GRAN # 6.2 K/mm3 (1.4-6.5); GRAN % 72.9 % (42.2-75.2); HEMATOCRIT 37.7 % (37.0-47.0); HEMOGLOBIN 12.9 g/dl (12.5-16.0); LYMPH # 1.8 K/mm3 (1.2-3.4); LYMPH % 20.5 % (20.0-51.0); MEAN CELL VOLUME 86 fl (80.0-100.0); MEAN CORPUSCULAR HEMOGLOBIN 30 pg (27-31); MEAN CORPUSCULAR HGB CONC 34 g/dl (33.0-37.0); MEAN PLATELET VOLUME 9.7 fl (7.4-10.4); MONO # 0.4 K/mm3 (0.1-0.6); MONO % 4.9 % (1.7-9.3); PLATELET COUNT 285 K/mm3 (130-400); RED BLOOD COUNT 4.38 M/mm3 (4.10-5.30); REDCELL DISTRIBUTION WIDTH-CV 13.8 % (11.5-14.5)
[2023-07-22 17:34] LABS: ALBUMIN 3.7 g/dL (3.5-5.0); BILIRUBIN,TOTAL 1.1 mg/dL (0.2-1.2); CREATININE, serum 0.78 mg/dL (0.57-1.11); TOTAL PROTEIN 6.7 g/dl (6.2-8.1)
[2023-07-22 17:54] LABS: TSH w REFLEX 1.649 uIU/mL (0.350-4.940)
[2023-07-22 23:09] LABS: IMMUNOGLOBULIN A 79 mg/dL (65-421)
== END ==
LOC: COL.LAB 16:18
PROVIDERS: Psychiatry & Neurology Neurology
DX: G35 Multiple sclerosis (principal); Z79.899 Other long term (current) drug therapy